=== PATIENT | male | born 1985 | race Hispanic/Latino ===

== ENCOUNTER 2019-08-28 08:37 | Emergency (ER) | payer SELFPAY ==
[2019-08-28] MEDS ORDERED: cloNIDine 0.1 MG TAB PO ONE (09:00)
--- NOTE | 2019-08-28 09:03 | Emergency Department Report ---
ED Psych HPI - General Chief Complaint: Psych Stated Complaint: MENTAL PROBLEMS Time Seen by Provider: 08/28/19 08:54 Source: patient Mode of arrival: Ambulatory - History of Present Illness Initial Comments: Patient is 34-year-old male with history of schizophrenia. Patient presented to the ER stating that he is hearing voices asking him to kill himself. Patient stated that he is out of his psychiatric medication for a good while. Patient also has a history of hypertension and he was taking clonidine but he did not took it for the last few weeks. Patient stated that he started using methamphetamine 4 days ago. Patient denied any homicidal ideation but admitted auditory and visual hallucination. Patient stated he is suicidal but he does not have a plan. Patient denied any headache, neck pain, weakness numbness or tingling sensation. No chest pain or shortness of breath. MD Complaint: suicidal ideation -: days(s) Associated Psychiatric Symptoms: suicidal ideation, racing thoughts, auditory hallucinations, visual hallucinations History of same: Yes Quality: constant Context: recent drug abuse Associated Symptoms: denies other symptoms Treatments Prior to Arrival: none If Self Harm: admits thoughts of - Related Data Allergies Allergy/AdvReac Type Severity Reaction Status Date / Time Penicillins Allergy Unknown Verified 08/28/19 08:48 Sulfa (Sulfonamide Allergy Unknown Verified 08/28/19 08:48 Antibiotics) ED Review of Systems ROS: Stated complaint: MENTAL PROBLEMS Other details as noted in HPI Comment: All other systems reviewed and negative Constitutional: denies: chills, fever Respiratory: denies: cough, shortness of breath, SOB with exertion Cardiovascular: denies: chest pain, palpitations Gastrointestinal: denies: abdominal pain, nausea, vomiting, diarrhea, constipation, hematemesis, melena, hematochezia Musculoskeletal: denies: back pain Neurological: denies: headache, weakness Psychiatric: anxiety, auditory hallucinations, visual hallucinations, suicidal thoughts. denies: homicidal thoughts ED Past Medical Hx - Past Medical History Previous Medical History?: Yes Hx Hypertension: Yes Hx Psychiatric Treatment: Yes (bipolar/paranoid schizo/PTSD) - Surgical History Past Surgical History?: No - Social History Smoking Status: Current Every Day Smoker Substance Use Type: Methamphetamines ED Physical Exam - General Limitations: No Limitations General appearance: alert, in no apparent distress, anxious - Head Head exam: Present: atraumatic, normocephalic, normal inspection - Eye Eye exam: Present: normal appearance - ENT ENT exam: Present: normal exam, normal orophraynx, mucous membranes moist - Neck Neck exam: Present: normal inspection, full ROM. Absent: tenderness, meningismus, lymphadenopathy, thyromegaly - Respiratory Respiratory exam: Present: normal lung sounds bilaterally - Cardiovascular Cardiovascular Exam: Present: regular rate, normal rhythm, normal heart sounds - GI/Abdominal GI/Abdominal exam: Present: soft, normal bowel sounds. Absent: distended, tenderness, guarding, rebound, rigid, organomegaly, mass, bruit, pulsatile mass, hernia - Extremities Exam Extremities exam: Present: normal inspection, full ROM, normal capillary refill. Absent: pedal edema, calf tenderness - Back Exam Back exam: Present: normal inspection, full ROM. Absent: CVA tenderness (R), CVA tenderness (L), muscle spasm, paraspinal tenderness, vertebral tenderness - Neurological Exam Neurological exam: Present: alert, oriented X3, CN II-XII intact, normal gait, reflexes normal. Absent: motor sensory deficit - Psychiatric Psychiatric exam: Present: normal mood - Skin Skin exam: Present: warm, intact, normal color ED Course Vital Signs 08/28/19 08/28/19 08/28/19 08:39 09:00 09:40 Temperature 97.8 F Pulse Rate 103 H 86 87 Respiratory 20 18 Rate Blood Pressure 196/125 179/132 Blood Pressure 179/132 [Left] O2 Sat by Pulse 97 97 Oximetry 08/28/19 08/28/19 10:00 10:54 Temperature 98.3 F Pulse Rate 85 95 H Respiratory 18 18 Rate Blood Pressure Blood Pressure 139/104 110/76 [Left] O2 Sat by Pulse 98 100 Oximetry ED Medical Decision Making - Lab Data Result diagrams: 08/28/19 09:20 08/28/19 11:40 Critical care attestation.: If time is entered above; I have spent that time in minutes in the direct care of this critically ill patient, excluding procedure time. ED Disposition Clinical Impression: Acute psychosis, Suicidal ideation, Malignant hypertension Condition: Stable Instructions: Hypertension (ED)
[2019-08-28 10:03] LABS: Basophils # (Auto) 0.1 K/mm3 (0.0-0.1); Basophils % (Auto) 0.7 % (0.0-1.8); Eosinophils # (Auto) 0.1 K/mm3 (0.0-0.4); Eosinophils % (Auto) 1.5 % (0.0-4.3); Hematocrit 49.1 % (35.5-45.6); Hemoglobin 16.7 gm/dl (11.8-15.2); Lymphocytes # (Auto) 2.8 K/mm3 (1.2-5.4); Lymphocytes % (Auto) 34.5 % (13.4-35.0); Mean Corpuscular HGB Conc 34 % (32-34); Mean Corpuscular Volume 89 fl (84-94); Monocytes # (Auto) 0.4 K/mm3 (0.0-0.8); Monocytes % (Auto) 5.1 % (0.0-7.3); Platelet Count 396 K/mm3 (140-440); Red Blood Count 5.55 M/mm3 (3.65-5.03); Red Cell Distribution Width 13.1 % (13.2-15.2)
[2019-08-28 10:10] LABS: Alanine Aminotransferase 32 units/L (7-56); Albumin 4.7 g/dL (3.9-5)
[2019-08-28 10:13] LABS: Bilirubin,Direct < 0.2 mg/dL (0-0.2)
[2019-08-28 10:44] LABS: Benzodiazepines Screen,Urine PRESUMPTIVE NEGATIVE; Cannabinoid Screen,Urine PRESUMPTIVE NEGATIVE; Cocaine Screen,Urine PRESUMPTIVE NEGATIVE; Methadone Screen,Urine PRESUMPTIVE NEGATIVE; Opiate Screen,Urine PRESUMPTIVE NEGATIVE
[2019-08-28 11:17] LABS: BUN/Creatinine Ratio TNR; Blood Urea Nitrogen TNR mg/dL (9-20); Calcium TNR mg/dL (8.4-10.2)
[2019-08-28 11:18] LABS: Hemolysis Index TNR
[2019-08-28 11:32] LABS: Bilirubin,Urine NEG (Negative); Blood,Urine NEG (Negative); Color,Urine Yellow (Yellow); Mucus,Urine FEW /HPF; Protein,Urine <15 mg/dL mg/dL (Negative); Urobilinogen,Urine < 2.0 mg/dL (<2.0)
[2019-08-28 11:34] LABS: Amphetamine Screen,Urine PRESUMPTIVE POSITIVE
[2019-08-28 12:29] LABS: BUN/Creatinine Ratio 16; Blood Urea Nitrogen 14 mg/dL (9-20); Calcium 9.4 mg/dL (8.4-10.2); Hemolysis Index 8
[2019-08-28] MEDS: cloNIDine 0.1 MG TAB PO SCH (22:45)
[2019-08-29] MEDS: cloNIDine 0.1 MG TAB PO SCH ×2 (10:32→22:03)
--- NOTE | 2019-08-29 12:17 | Consultation ---
History of Present Illness - Reason for Consult Consult date: 08/29/19 Reason for consult: suicidal thoughts - History of Present Psychiatric Illness The patient medical record and the patient's progress was discussed with the nursing staff. The nurse caring for the patient states he has been calm and cooperative, and complained of hearing voices yesterday. During my interview with the patient he is lying in bed. Awake. A/o x 3. Calm and cooperative. He makes good eye contact. The patient states he came to the ER for "hearing voices, using drugs and out of medication." He says "I'm okay," but the voices are "telling me to kill myself." He says "this happens when I get off my meds." The patient denies SI/HI at present. The patient says he was staying at "[facility]" and states "they would not take me to get my medications, so I had no choice but to be here." He says he "hasn't had meds in three months." The patient says "the voices sound like people I know." He says he has a history of "paranoid schizophrenia, bipolar and PTSD." The patient says he "tired to commit suicide about three times a long time ago." He admits to using "meth" and states he did "heroine about 4 months ago." He denies any alcohol use but says she "smokes cigarets a pack per day." The patient is asking if the premises allowed smoking. Informed that patient this was a smoke free campus. The patient states, "the bottom line is I just need to be back on my meds. The [facility]'t [facility] time to take me." PAST PSYCHIATRIC HISTORY: Diagnoses: paranoid schizophrenia, bipolar and PTSD Suicide attempts or Self-harm behavior: 3x Prior psychiatric hospitalizations: "quite a few" Substance Abuse history: Meth, Heroine Previous psychiatric medications tried: Paxil, trazodone, clonidine, seroquel Outpatient treatment: Not since May PAST MEDICAL HISTORY: None reported Family Psychiatric History None reported or documented SOCIAL HISTORY Marital Status: Single Living Arrangements: Homeless Employment Status: Employed Access to guns/weapons: Denies Education: high school History of Abuse: Yes ROS: Constitutional: Negative for weight loss ENT: Negative for stridor Respiratory: Negative for cough or hemoptysis All other systems reviewed and are negative MENTAL STATUS General Appearance: Dressed appropriately Behavior: calm and cooperative, good eye contact Mood: "okay" Affect: Congruent Thought Process: Goal-directed Speech: Normal tone and pace Suicidal Ideation: Denies Homicidal Ideation: Denies Hallucinations: Auditory, command hallucinations Delusions: None elicited Insight and Judgment: Fair Memory/Cognition: Fair Diagnoses: Schizoaffective Disorder Plan Nicotine patch 21mg daily Paxil 20mg po daily Trazodone 50mg po qhs Seroquel 25mg po BID Geodon 10mg IM q4h prn agitation Medical: Per primary Sitter: Defer to primary Disposition: The patient meets the requirement for acute hospitalization at this time. He may transfer to an acute psychiatric facility once medically cleared. The treatment plan has been discussed with Mr. Lei, including benefits and side effects of medications. He verbalizes understanding and agreement of plan. Will continue to follow until the patient is transferred or his condition improves enough for discharge. Please call with any questions or concerns. Thank you for this consult. Medications and Allergies Allergies Allergy/AdvReac Type Severity Reaction Status Date / Time Penicillins Allergy Unknown Verified 08/28/19 08:48 Sulfa (Sulfonamide Allergy Unknown Verified 08/28/19 08:48 Antibiotics) Active Meds: Active Medications Clonidine HCl (Catapres) 0.1 mg PO Q12HR CLEM Last Admin: 08/29/19 10:32 Dose: 0.1 mg Documented by: Mental Status Exam - Vital signs Last Vital Signs Temp 97.8 F 08/29/19 08:00 Pulse 85 08/29/19 10:32 Resp 18 08/29/19 01:00 BP 120/86 08/29/19 10:32 Pulse Ox 96 08/29/19 08:00 Results Result Diagrams: 08/28/19 09:20 08/28/19 11:40 Abnormal lab results 08/28/19 Range/Units 11:40 Glucose 116 H (75-100) mg/dL All other labs normal.
[2019-08-29] MEDS ORDERED: ZIPRASIDONE MESYLATE 20 MG VIAL IM PRN (12:37)
[2019-08-29] MEDS: NICOTINE 21 MG/24 HR PATCH TD SCH (14:25)
[2019-08-29] MEDS: QUEtiapine 25 MG TAB PO SCH ×2 (14:25→22:03)
[2019-08-29] MEDS: PARoxetine 20 MG TAB PO SCH (19:54)
[2019-08-29] MEDS ORDERED: traZODone 50 MG TAB PO SCH (22:00)
[2019-08-29] MEDS ORDERED: ACETAMINOPHEN 325 MG TAB PO PRN (22:05)
[2019-08-30] MEDS: QUEtiapine 25 MG TAB PO SCH (11:51)
[2019-08-30] MEDS: cloNIDine 0.1 MG TAB PO SCH (11:52)
[2019-08-30] MEDS: NICOTINE 21 MG/24 HR PATCH TD SCH (11:52)
--- NOTE | 2019-08-30 13:18 | Progress Note ---
Subjective - Reason for Consult Consult date: 08/30/19 Reason for consult: haullucinations - Chief Complaint Chief complaint: The patient's medical record was reviewed and the patient's progress discussed with the nursing staff. The nurse caring for the patient states the patient has been calm and cooperative, and hasn't shown any abnormal behaviors. During my interview with the patient today, his is sitting up in bed. He is a/o x 3. He is calm and cooperative. He states upon me entering the room, "can I please go home. The drugs had me out of my head. They are wearing off now." The patient denies suicidal ideation at this time, stating, "I love God. I'm not going to kill myself. If I wanted to do that, I would have been did it." He says, "I told you yesterday I just needed to get back on my meds. What you started me on, I feel so much better." The patient then states, "that's the only reason I'm here. [facility] not [facility] me." Mr. Lei says, "I need to get back to [facility] and find out if I still have a spot. Being here will only make things worse because I might lose my place there." He says, "If not I have money to get a hotel." He denies hallucinations of any kind at present, stating "yesterday was the last time. They were really just voices telling me that other people are out to get me." He describes his mood as "good" and says he "slept like a rock." ROS: Constitutional: Negative for weight loss ENT: Negative for stridor Respiratory: Negative for cough or hemoptysis All other systems reviewed and are negative MENTAL STATUS General Appearance: Dressed appropriately Behavior: calm and cooperative, good eye contact Mood: "Good" Affect: Congruent with mood Thought Process: Goal directed Speech: Normal tone and pace Suicidal Ideation: Denies Homicidal Ideation: Denies Hallucinations: Denies Delusions: None elicited Insight and Judgment: Good Memory/Cognition: Fair Diagnoses: Schizoaffective Disorder Plan D/c 1013 Scripts given Nicotine patch 21mg daily Paxil 20mg po daily Trazodone 50mg po qhs Seroquel 25mg po BID Medical: Per primary Sitter: Defer to primary Disposition: The patient does not meet the requirement for acute hospitalization at this time. He may discharge home once medically cleared. Mr. Lei denies SI/HI or any fear or endangering feelings. He also denies any psychosis. The patient understands that if suicidal or homicidal thoughts are to arise he should seek immediate assistance, including but not limited to suicide hotline, 911 and/or ER. The patient to follow up with outpatient psych in 7 to 14 days upon discharge The treatment plan has been discussed with Mr. Lei, including benefits and side effects of medications. He verbalizes understanding and agreement of plan. Will sign off. Please call with any questions or concerns. Thank you for this consult. Mental Status Exam - Vital signs Last Vital Signs Temp 98.1 F 08/30/19 08:10 Pulse 82 08/30/19 08:10 Resp 16 08/30/19 08:10 BP 121/82 08/30/19 08:10 Pulse Ox 96 08/30/19 08:10
[2019-08-30] MEDS: PARoxetine 20 MG TAB PO SCH (13:24)
[2019-08-30 16:20] VITALS: BP 125/66
== END 2019-08-30 16:20 ==
LOC: EEVIPCON 08:37 → ED 08:37
DX: F23 Brief psychotic disorder (principal); R45.851 Suicidal ideations; I10 Essential (primary) hypertension; F31.9 Bipolar disorder, unspecified; F17.200 Nicotine dependence, unspecified, uncomplicated; Z88.0 Allergy status to penicillin; Z88.2 Allergy status to sulfonamides
CPT/HCPCS: 36415; 80048; 80076; 80307; 80320; 81001; 85025; G0480